=== PATIENT | male | born 2000 | race Caucasian/White ===

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

== ENCOUNTER 2022-03-25 13:06 | Emergency (ER) | payer MEDICAID, SELFPAY ==
[2022-03-25] VITALS (9 sets, daily range): BP systolic 120–157; BP diastolic 61–96; PULSE 60–88; RESP 12–20; TEMP 36.6; O2SAT 99–100
[2022-03-25 13:45] LABS: Chloride 104 mmol/L (98-107); Potassium 4.2 mmoL/L (3.5-5.1); Sodium 139 mmol/L (136-145)
[2022-03-25 13:47] LABS: Alanine Aminotransferase 35 U/L (12-78); Alkaline Phosphatase 128 U/L (38-126); Aspartate Amino Transferase 36 U/L (17-59); Bilirubin,Total 2.2 mg/dl (0.2-1.3); Blood Urea Nitrogen 9 mg/dl (9-20); Creatinine Clearance Estimated 133 mL/min (50-200); Estimated Glomerular Filt Rate 125 ml/min (>60); GFR (African American) 151 ML/MIN (>60)
[2022-03-25 13:48] LABS: Acetaminophen 16 ug/ml (10-30); Albumin/Globulin Ratio 1.8 (1.1-1.8); Anion Gap 12.2 mEq/L (5-15); Carbon Dioxide 27 mmol/L (22.0-30.0); Globulin 2.8 g/dL (1.3-3.2); Glucose 159 mg/dl (74-100); Salicylate < 1.0 mg/dL (2.0-20.0); Total Protein,Serum 7.8 g/dl (6.3-8.2)
[2022-03-25 14:01] LABS: Basophils # 0.1 K/mm3 (0-0.2); Basophils % 1.3 % (0.1-2.0); Eosinophils % 0.2 % (0.1-12.0); Hematocrit 48.6 % (42.0-52.0); Hemoglobin 15.5 g/dL (14.1-18.0); Lymphocytes # 0.8 K/mm3 (0.7-4.5); Lymphocytes % 10.9 % (10-50); Mean Corpuscular HGB Conc 31.8 g/dL (31.8-35.4); Mean Corpuscular Hemoglobin 32.3 pg (27.0-31.2); Mean Corpuscular Volume 101.6 fl (80-94); Mean Platelet Volume 10.3 fl (7.4-10.4); Monocytes # 0.4 K/mm3 (0.1-1.0); Monocytes % 4.7 % (1.7-9.3); Neutrophils # 6.4 K/mm3 (1.8-7.8); Platelet Count 193 K/mm3 (142-424); Red Blood Count 4.78 M/mm3 (4.60-6.20); Red Cell Distribution Width 13.9 % (11.5-17.5); White Blood Count 7.8 K/mm3 (4.5-13.0)
--- NOTE | 2022-03-25 14:03 | HMH.EDGENADL ---
ED Disposition Clinical Impression: Vomiting Qualifiers: Vomiting type: unspecified Nausea presence: with nausea Qualified Code(s): R11.2 - Nausea with vomiting, unspecified Disposition: Home, Self-Care Condition on Discharge: Good Instructions: DI for Dental Pain, DI for Vomiting -- Adult Additional Instructions: Zofran as needed for nausea and vomiting. Do not take any more than 2 extra strength Tylenol at a time, no more frequently than every 6 hours. May also take ibuprofen for pain. Dental balls as needed for toothache. Follow-up with a dentist as soon as possible. Return emergency department if worsening. Prescriptions: Ondansetron [Zofran 4mg ODT] 4 mg PO TIDP PRN #10 tab PRN Reason: Nausea And Vomiting Transmission Status: Pending to [id number] Referrals: Provider,Referral, [Primary Care Provider] - - Critical Care Critical Care Time: No Attestation: On 03/25/22, the high probability of a clinically significant, sudden or life threatening deterioration of the following system(s) required my full and direct attention, intervention and personal management. The time I documented below is in addition to time spent performing reported procedures but includes the following listed in this critical care notation. Medical Decision Making - [place] Inquiry Pt receiving controlled substance: No Vital Signs: 03/25/22 13:10 03/25/22 14:31 03/25/22 15:01 Temperature 97.8 F Temperature Source Oral Pulse Rate 69 60 Pulse Rate [Brachial] 88 Respiratory Rate 18 13 15 Blood Pressure 132/75 135/61 Blood Pressure [Right Arm] 132/96 H Blood Pressure Mean 92 85 Blood Pressure Mean [Right Arm] 108 Blood Pressure Source [Right Arm] Automatic Cuff Blood Pressure Position [Right Arm] Sitting 02 Sat by Pulse Oximetry 99 100 99 Oxygen Delivery Method Room Air 03/25/22 15:31 03/25/22 16:00 03/25/22 16:33 Temperature Temperature Source Pulse Rate 69 63 70 Pulse Rate [Brachial] Respiratory Rate 16 12 16 Blood Pressure 120/77 136/81 133/81 Blood Pressure [Right Arm] Blood Pressure Mean 86 95 95 Blood Pressure Mean [Right Arm] Blood Pressure Source [Right Arm] Blood Pressure Position [Right Arm] 02 Sat by Pulse Oximetry 99 100 99 Oxygen Delivery Method Room Air Room Air Room Air 03/25/22 17:01 Temperature Temperature Source Pulse Rate Pulse Rate [Brachial] Respiratory Rate 19 Blood Pressure 140/76 Blood Pressure [Right Arm] Blood Pressure Mean 89 Blood Pressure Mean [Right Arm] Blood Pressure Source [Right Arm] Blood Pressure Position [Right Arm] 02 Sat by Pulse Oximetry 99 Oxygen Delivery Method Room Air - Lab Data Lab Results 03/25/22 13:30: WBC 7.8, RBC 4.78, Hgb 15.5, Hct 48.6, MCV 101.6 H, MCH 32.3 H, MCHC 31.8, RDW 13.9, Plt Count 193, MPV 10.3, Neut % (Auto) 83.0 H, Lymph % (Auto) 10.9, Clay % (Auto) 4.7, Eos % (Auto) 0.2, Baso % (Auto) 1.3, Neut # (Auto) 6.4, Lymph # (Auto) 0.8, Clay # (Auto) 0.4, Eos # (Auto) 0.0, Baso # (Auto) 0.1 03/25/22 13:30: Sodium 139, Potassium 4.2, Chloride 104, Carbon Dioxide 27, Anion Gap 12.2, BUN 9, Creatinine 0.80, Estimated Creat Clear 133, Estimated GFR 125, Est GFR ( Amer) 151, Glucose 159 H, Calcium 10.0, Total Bilirubin 2.2 H, AST 36, ALT 35, Alkaline Phosphatase 128 H, Total Protein 7.8, Albumin 5.0, Globulin 2.8, Albumin/Globulin Ratio 1.8, Salicylates < 1.0 L, Acetaminophen 16 03/25/22 13:30: Lipase 32 03/25/22 13:30: PT 11.9, INR 1.06, APTT 24.2 03/25/22 14:16: Urine Opiates Screen Negative, Urine Methadone Screen Negative, Ur Barbituates Screen Negative, Ur Phencyclidine Scrn Negative, Ur Amphetamines Screen Negative, U Benzodiazepines Scrn Negative, Urine Cocaine Screen Negative, U Marijuana (THC) Screen Positive H 03/25/22 14:16: Urine Color Yellow, Urine Appearance Clear, Urine pH 8.0, Ur Specific [place] 1.015, Urine Protein Negative, Urine Glucose (UA) Negative, Urine Ketones 3+,
--- NOTE | 2022-03-25 14:08 | PC.NURSE ---
ED MD AT BEDSIDE
--- NOTE | 2022-03-25 14:15 | CT_ITS ---
FINAL REPORT CLINICAL HISTORY: abdo pain lower abdomen with nausea FINDINGS: Axial CT images of the abdomen and pelvis were obtained without intravenous contrast. Coronal reformatted images were also obtained.This study was performed with techniques to keep radiation doses as low as reasonably achievable (ALARA). Individualized dose reduction techniques using automated exposure control or adjustment of mA and/or kV according to the patient's size were employed. Abdomen: The lung bases are clear. There are several, less than 3 mm, bilateral nonobstructing renal stones. There is no hydronephrosis. The gallbladder is present. The liver, spleen and pancreas have an unremarkable, unenhanced appearance. No mass or adenopathy is seen. No inflammatory process is identified. Pelvis: Images of the pelvis reveal no evidence of ureteral dilation or ureteral stone.No mass or abnormal fluid collection is identified. The appendix is normal. IMPRESSION: Several, less than 3 mm, bilateral nonobstructing renal stones. No hydronephrosis. No mass or inflammatory process. Reviewed, Interpreted and Dictated by Bebeto Pearson III, MD Transcribed by Barb Pimentel Authenticated and [facility]
[2022-03-25 14:27] LABS: Lipase 32 U/L (23-300)
--- NOTE | 2022-03-25 14:29 | PC.NURSE ---
PT MEDICATED AT THIS TIME FOR N/V. WARM BLANKET PROVIDED. DENIES FURTHER NEEDS
[2022-03-25 14:40] LABS: Activated Partial Thrombo Time 24.2 seconds (22.8-30.6); INR 1.06 (0.9-1.1); Prothrombin Time 11.9 seconds (10.1-12.5)
--- NOTE | 2022-03-25 14:45 | PC.NURSE ---
PT TO CT PER WHEELCHAIR AT THIS TIME
--- NOTE | 2022-03-25 14:54 | PC.NURSE ---
PT RETURNED FROM CT AT THIS TIME
--- NOTE | 2022-03-25 15:20 | PC.NURSE ---
PT SITTING UP IN BED, NO NEEDS AT THIS TIME
[2022-03-25 15:58] LABS: Microscopic, Urine URINE MICROSCOPIC (MICROSCOPIC)
[2022-03-25 16:03] LABS: Appearance,Urine CLEAR (Clear); Bilirubin,Urine Negative (Negative); Blood, Urine Negative (Negative); Color,Urine YELLOW (Yellow); Glucose,Urine (UA) Negative (Negative); Ketones,Urine 3+ (Negative); Leukocyte Esterase,Urine Negative (Negative); Nitrate,Urine Negative (Negative); Protein,Urine Negative (Negative); Specific Gravity, Urine 1.015 (1.005-1.030); Urobilinogen,Urine 0.2 EU/dl (0.2)
[2022-03-25 16:13] LABS: Barbiturates Screen,Urine Negative ng/ml (<200)
[2022-03-25 16:14] LABS: Benzodiazepines Screen,Urine Negative ng/ml (<200)
[2022-03-25 16:15] LABS: Amphetamine/Metha Screen,Urine Negative ng/ml (<1000); Methadone Screen,Urine Negative ng/ml (<300)
[2022-03-25 16:16] LABS: Cannabinoid Screen,Urine Positive ng/ml (<50)
[2022-03-25 16:17] LABS: Cocaine Screen,Urine Negative ng/ml (<300); Opiate Screen,Urine Negative ng/ml (<300)
[2022-03-25 16:18] LABS: Phencyclidine Screen,Urine Negative ng/ml (<25)
--- NOTE | 2022-03-25 16:30 | PC.NURSE ---
LAB AT BEDSIDE
[2022-03-25 16:42] LABS: Bacteria,Urine Trace /lpf; RBC,Urine Occasional #/hpf (0-3)
[2022-03-25 16:55] LABS: Alanine Aminotransferase 32 U/L (12-78); Aspartate Amino Transferase 35 U/L (17-59); Bilirubin,Unconjugated 2.1 mg/dL (0.0-1.1)
[2022-03-25 16:56] LABS: Albumin Level 4.4 g/dl (3.5-5.0); Alkaline Phosphatase 103 U/L (38-126); Total Protein,Serum 6.9 g/dl (6.3-8.2)
[2022-03-25 17:35] LABS: Coronavirus 19, PCR Not Detected (NotDetected); Influenza A, PCR Not Detected (NotDetected); Influenza B, PCR Not Detected (NotDetected)
--- NOTE | 2022-03-25 17:39 | PC.NURSE ---
PT UPDATED AT THIS TIME ON POC, ICE WATER PROVIDED. NO NEEDS AT THIS TIME
[2022-03-25 17:48] LABS: Acetaminophen < 10 ug/ml (10-30)
== END 2022-03-25 18:30 | disposition home or self-care (01) ==
PROVIDERS: Emergency Provider Emergency Medicine
DX: R11.2 Nausea with vomiting, unspecified (principal); R10.9 Unspecified abdominal pain
CPT/HCPCS: 74176; 80053; 80076; 80305; 80329; 81001; 83690; 85025; 85610; 85730; 96365; 96375; 96376; 99284; C9803; J2405; U0003; U0005

== ENCOUNTER 2023-04-20 13:38 | Emergency (ER) | payer MEDICAID, SELFPAY ==
[2023-04-20 13:38] VITALS: BP 117/76; PULSE 86; RESP 18; TEMP 36.9; O2SAT 96; BMI 20.5
--- NOTE | 2023-04-20 14:04 | EXP.UTC ---
Discharge Plan Disposition Patient Disposition: Home, Self-Care Condition: Good Prescriptions Prescriptions: New awlnngntlmelvru-zxiacjzqr-UH [Bromfed DM] 2-30-10 mg/5 mL Syrup 5 ml PO Q6H PRN (Reason: Cough) Qty: 240 0RF ondansetron 4 mg Tablet,Disintegrating 4 mg PO Q8H PRN (Reason: Nausea) Qty: 12 0RF No Action ondansetron 4 MG tablet,disintegrating 4 mg PO TIDP PRN (Reason: Nausea And Vomiting) Qty: 10 0RF Referrals Follow up/Referrals: Provider,Referral, MD [Primary Care Provider] - See instructions Activity Restrictions/Add. Instructions Additional Instructions/Restrictions: Drink plenty of fluids. Take tylenol for pain or fever. Return if you begin to have difficulty breathing. Follow up with your regular doctor. GO TO THE ER FOR ANY WORSENING SYMPTOMS Clinical Impressions Clinical Impression: COVID-19 Instructions Patient Instructions: Coronavirus Disease 2019, Preventing the Spread of Coronavirus Discharge Instructions Discharge ED Provider: Mane Conroy [facility] General Stated complaint: Covid+ 04/20, Bodyaches, Headache, SOA Time Seen by Provider: 04/20/23 14:04 History of Present Illness Provider Complaint: He has been feeling bad, having n/v/d, and low grade fever for the past 2 days. He tested positive on a home covid-19 test today. He denies any shortness of breath. Related Data Previous Rx's Medication Instructions Recorded ondansetron 4 mg disintegrating 4 mg PO TIDP PRN Nausea And 03/25/22 tablet Vomiting #10 tabs jdsckwnvjnxvlxk-dftlzxifbyufwjj-GJ 5 ml PO Q6H PRN Cough #240 mL 04/20/23 2 mg-30 mg-10 mg/5 mL oral syrup (Bromfed DM) ondansetron 4 mg disintegrating 4 mg PO Q8H PRN Nausea #12 tabs 04/20/23 tablet Allergies Allergy/AdvReac Type Severity Reaction Status Date / Time No Known Allergies Allergy Verified 03/25/22 13:33 [facility] Disclaimer: The information contained in this section may have been updated after the patient was seen, as this information can be updated by other users. Social History Smoking Status: Never smoker alcohol intake: never current occupational status: employed Travel in the last 8 weeks: None ROS Obtained: Yes All systems reviewed & no additional complaints except as documented Constitutional Constitutional: Reports as per HPI, Denies chills and Reports fever(s) Eyes Eyes: Denies eye discharge ENT Ears, Nose, Mouth, and Throat: Denies dizziness, Denies otalgia and Denies sore throat Cardiovascular Cardiovascular: Denies chest pain Respiratory Respiratory: Denies shortness of breath, Denies chest congestion, Denies cough, Denies stridor and Denies wheezing Gastrointestinal Gastrointestingal: Denies nausea or vomiting Musculoskeletal Musculoskeletal: Reports system reviewed and no additional complaints, except as documented and Denies arthralgias Integumentary/Breasts Skin/Breast: Denies rash Neurologic Neurologic: Denies dizziness and Denies paresthesias Allergic/Immunologic Allergic/Immunologic: Denies wheezing Physical Exam General General appearance: alert and in no apparent distress Head Head exam: atraumatic, normocephalic and normal inspection Eye Eye exam: Present normal appearance, PERRL and EOMI ENT ENT exam: Present normal exam, normal oropharynx, mucous membranes moist, TM's normal bilaterally and normal external ear exam Neck Neck exam: Present normal inspection, full ROM and trachea midline; Absent meningismus or lymphadenopathy Chest Chest inspection: Present normal inspection and symmetric chest wall rise; Absent tenderness Respiratory Respiratory exam: Present normal lung sounds bilaterally; Absent respiratory distress Cardiovascular Cardiovascular exam: Present regular rate and normal rhythm; Absent JVD Abdominal Exam Abdominal exam: Present soft and normal bowel sounds; Absent distention, tenderness or guarding Extre
[2023-04-20 15:00] VITALS: BP 117/76; PULSE 86; RESP 18; TEMP 36.9; O2SAT 96
== END 2023-04-20 15:01 | disposition home or self-care (01) ==
PROVIDERS: Emergency Provider Nurse Practitioner Family
DX: U07.1 COVID-19 (principal); R11.2 Nausea with vomiting, unspecified; R19.7 Diarrhea, unspecified
CPT/HCPCS: 99204; 99212; G0463

== ENCOUNTER 2023-07-14 12:53 | Emergency (ER) | payer MEDICAID, SELFPAY ==
[2023-07-14 12:58] VITALS: BP 162/82; PULSE 103; RESP 20; TEMP 36.8; O2SAT 95
--- NOTE | 2023-07-14 13:01 | PC.NURSE ---
Dr. Espinoza at [facility] for pt eval
--- NOTE | 2023-07-14 13:05 | XR_ITS ---
FINAL REPORT CLINICAL HISTORY: stepped on nail today; FB? FINDINGS: LEFT FOOT Three views of the left foot demonstrate no acute fracture or dislocation. The visualized joint spaces are normally aligned. The soft tissues are unremarkable. No radiopaque foreign body is identified. IMPRESSION: No acute bony abnormality. Reviewed, Interpreted and Dictated by Bebeto Pearson III, MD Transcribed by Obdulia Alcantar Authenticated and [facility]
--- NOTE | 2023-07-14 13:05 | HMH.EDGENADL ---
Discharge Plan Disposition Chief Complaint: Skin/Abscess/Foreign Body Prescriptions Prescriptions: New ciprofloxacin HCl 500 mg tablet 500 mg PO BID 7 Days Qty: 14 0RF cephalexin 500 mg capsule 500 mg PO QID 7 Days Qty: 28 0RF No Action ondansetron 4 MG tablet,disintegrating 4 mg PO TIDP PRN (Reason: Nausea And Vomiting) Qty: 10 0RF ypulibjpjngswma-ntbqecuwi-WN [Bromfed DM] 2-30-10 mg/5 mL Syrup 5 ml PO Q6H PRN (Reason: Cough) Qty: 240 0RF ondansetron 4 mg Tablet,Disintegrating 4 mg PO Q8H PRN (Reason: Nausea) Qty: 12 0RF Referrals Follow up/Referrals: Provider,Referral, MD [Primary Care Provider] - See instructions Activity Restrictions/Add. Instructions Additional Instructions/Restrictions: You had a puncture wound of the plantar aspect of your foot which penetrated through a rubber sole and contaminated area. Your tetanus vaccination status was updated today. We have prescribed you 2 antibiotics to cover organisms that we would be concerned about which may cause infection downstream. Please continue to clean the area with soap and water and return with any significant spreading redness or pus coming from the wound or difficulty bearing weight on your foot, or fevers or chills. Clinical Impressions Clinical Impression: Puncture wound of plantar aspect of foot Instructions Patient Instructions: DI for Skin Abscess Discharge ED Provider: Rajesh Espinoza General Adult HPI General Chief complaint: Skin/Abscess/Foreign Body Stated complaint: AO 07/14 stepped on nail left foot pain Time Seen by Provider: 07/14/23 13:00 Mode of Arrival: Ambulatory Source of Information: Patient Limitations: No Limitations Description of Symptoms (Recalled from ER Triage Doc. by RN): pt to ed c/o stepping on a nail with his left foot. pt states he is not utd with tetanus. History of Present Illness HPI narrative: Patient is a 22-year-old male presenting today with a puncture wound to the plantar aspect of his left foot. States he was walking in his yard just off of his porch when he stepped on a nail which may have been an inch to 2 inches in length and about half of it penetrated through the rubber sole of his shoe and into his foot. He was able to clean it extensively with soap water and hydrogen peroxide. He does not believe any amount of the nail was left in his foot. He does not have any other medical problems and only smokes marijuana from historical standpoint. Related Data Previous Rx's Medication Instructions Recorded ondansetron 4 mg disintegrating 4 mg PO TIDP PRN Nausea And 03/25/22 tablet Vomiting #10 tabs kfcmwcwtovgnwcs-xuuigopblxydysw-XL 5 ml PO Q6H PRN Cough #240 mL 04/20/23 2 mg-30 mg-10 mg/5 mL oral syrup (Bromfed DM) ondansetron 4 mg disintegrating 4 mg PO Q8H PRN Nausea #12 tabs 04/20/23 tablet cephalexin 500 mg capsule 500 mg PO QID 7 days #28 caps 07/14/23 ciprofloxacin HCl 500 mg tablet 500 mg PO BID 7 days #14 tabs 07/14/23 Allergies Allergy/AdvReac Type Severity Reaction Status Date / Time No Known Allergies Allergy Verified 03/25/22 13:33 [facility] Disclaimer: The information contained in this section may have been updated after the patient was seen, as this information can be updated by other users. Social History (Updated 04/20/23 @ 15:25 by Mane Conroy APRN) Smoking Status: Never smoker alcohol intake: never current occupational status: employed Travel in the last 8 weeks: None ROS Obtained: Yes All systems reviewed & no additional complaints except as documented Physical Exam General General appearance: alert Respiratory Respiratory exam: Present normal lung sounds bilaterally Cardiovascular Cardiovascular exam: Present regular rate; Absent tachycardia Extremities Exam Extremities exam: Present other (Plantar aspect of left foot there is a 0.5 cm laceration/puncture wound wound edges are very clean from recently being scrubbed) Neuro
[2023-07-14 13:28] VITALS: BP 143/84; PULSE 84; RESP 16; TEMP 36.7; O2SAT 98
== END 2023-07-14 13:29 | disposition home or self-care (01) ==
PROVIDERS: Emergency Provider Student in an Organized Health Care Education/Training Program
DX: S91.332A Puncture wound without foreign body, left foot, initial encounter (principal); W45.0XXA Nail entering through skin, initial encounter; Z23 Encounter for immunization
CPT/HCPCS: 73630; 90471; 90715; 96372; 99283